=== PATIENT | male | born 1950 | race Caucasian/White ===

== ENCOUNTER 2021-11-11 22:18 | Inpatient (IN) | payer BC, MEDICAID, SELFPAY ==
[~2021-11-11] VITALS: Ht 177.8 cm; Wt 72.1 kg
--- NOTE | 2021-11-11 22:39 | NUR ---
PT TO HOLD IN AMBULANCE.
[2021-11-11 22:59] VITALS: BP 135/74
--- NOTE | 2021-11-11 22:59 | NUR ---
PT ADRIEN ALS. TAKEN TO BED 1
[2021-11-11] MEDS ORDERED: METOCLOPRAMIDE 10 MG/2 ML INJ VIAL IVP ONE (23:00)
[2021-11-11] MEDS ORDERED: KETOROLAC 15 MG/ML VIAL IVP ONE (23:00)
--- NOTE | 2021-11-11 23:00 | NUR ---
PATIENT C/O INCREASING SOB x1 DAY. COVID+ FOR 9 DAYS. 85% RA. PATIENT BIBA FROM HOME. PATIENT WAS MOIST, AND PALE. PATIENT REPORTS NOT EATING SINCE SICKNESS. +N/V. DIMINISHED LUNG SOUNDS THROUGHOUT AND PATIENT DOES HAVE A WET COUGH ON OCCASION. MEDHX- HLYD, ANXIETY, DEPRESSION NKA
[2021-11-11 23:14] LABS: BASOPHILS # (AUTO) 0.1 K/uL (0.00-0.22); BASOPHILS % (AUTO) 1.2 % (0.0-2.0); EOSINOPHILS % (AUTO) 0.1 % (0.0-4.0); HEMATOCRIT 49.4 % (36-52); HEMOGLOBIN 16.7 g/dL (12.0-18.0); LYMPHOCYTES % (AUTO) 17.8 % (20.5-51.1); MEAN CORPUSCULAR HEMOGLOBIN 30 pg (27-31); MEAN CORPUSCULAR HGB CONC 34 g/dL (33-37); MEAN CORPUSCULAR VOLUME 88.6 fL (80-94); MONOCYTES # (AUTO) 0.5 K/uL (0.8-1.0); MONOCYTES % (AUTO) 8.1 % (1.7-9.3); NEUTROPHILS % (AUTO) 72.8 % (42.2-75.2); PLATELET COUNT (AUTO) 163 K/uL (140-450); RED BLOOD CELL COUNT(AUTO) 5.58 MIL/uL (4.20-6.10); WHITE BLOOD COUNT (AUTO) 5.5 K/uL (4.8-10.8)
[2021-11-11 23:31] LABS: ANION GAP 13.3 (8-16); ASPARTATE AMINOTRANSFERASE 118 U/L (15-37); CARBON DIOXIDE 28.7 mmol/L (21-32); CHLORIDE 100 mmol/L (98-107); GLUCOSE 108 mg/dL (74-106); SODIUM SERUM 138 mmol/L (136-145); TOTAL BILIRUBIN 0.8 mg/dL (0.0-1.0); UREA NITROGEN, BLOOD 15 mg/dL (7-18)
[2021-11-12] MEDS ORDERED: AZITHROMYCIN 250 MG TAB PO ONE (00:45)
[2021-11-12] MEDS ORDERED: DEXAMETHASONE 10 MG/ML VIAL IVP ONE (00:45)
--- NOTE | 2021-11-12 01:12 | NUR ---
Mayra daughter called about patient condition. #[phone]
[2021-11-12] MEDS ORDERED: cefTRIAXone 1,000 MG VIAL ONE (01:27)
[2021-11-12] MEDS ORDERED: busPIRone 5 MG TAB PO SCH (02:20)
[2021-11-12] MEDS ORDERED: CRUSHER, PILL MC ONE (02:25)
--- NOTE | 2021-11-12 02:40 | NUR ---
patient reports feeling restless and anxious, patient moving a lot in the room and would like to go home but understands the need to stay in the hospital
--- NOTE | 2021-11-12 07:30 | NUR ---
Pt report given to BRIELLE BOWEN AND DANYA BOWEN. Transfer of care at this time.
--- NOTE | 2021-11-12 07:32 | NUR ---
RECEIVED REPORT FROM CHRISTIANA, FINANCIAL PLANNING ADVISER OF ARE AT THIS TIME.
--- NOTE | 2021-11-12 09:03 | NUR ---
Patient appears to be resting comfortably in bed. Vital Signs within normal limits. Respirations even and unlabored.
[2021-11-12] MEDS ORDERED: MORPHINE SULFATE 4 MG/ML SYR IVP PRN (10:25)
[2021-11-12] MEDS ORDERED: HYDROcodone/APAP 5/325 MG 1 TAB TAB PO PRN (10:25)
[2021-11-12] MEDS ORDERED: ACETAMINOPHEN 325 MG TAB PO PRN (10:25)
[2021-11-12] MEDS ORDERED: remdesivir COMMUNICATION ORDER 1 EA MISC MC PRN (10:30)
--- NOTE | 2021-11-12 10:49 | NUR ---
PT IS LYING IN BED. ALL NEEDS MET. VITAL SIGNS STABLE. WILL CONTINUE TO MONITOR
[2021-11-12] MEDS ORDERED: remdesivir CLINICAL MONITORING 1 EA MISC MC PRN (10:50)
--- NOTE | 2021-11-12 11:06 | NUR ---
CONSENT SIGNED FOR [facility] INFUSION. PLACED IN CHART.
[2021-11-12] MEDS ORDERED: REMDESIVIR. 200 MG in NACL 0.9% 100 ML IV SCH (12:00)
--- NOTE | 2021-11-12 12:12 | NUR ---
DC PLANNING: ORDERS RECEIVED FOR HOME O2, ORDERS FAXED TO [facility] TO ARRANGE. CM WILL FOLLOW. Addendum: 11/13/21 at 1113 by Ivett Zamora CM DC PLANNING: KB LEFT FOR SERVANDO SMITH AT [facility] ENDORSING POTENTIAL DC TO HOME TODAY, ASKED HER TO FINALIZE O2 ARRANGEMENTS FOR DELIVERY TO THE HOSPITAL. CM WILL FOLLOW. Addendum: 11/13/21 at 1559 by Ivett Zamora CM DC PLANNING: SERVANDO SPOKE WITH SERVANDO TRIPATHI AT [facility] ([phone]), O2 ORDERED THROUGH [facility] ([phone]), NO ETA YET PER BHUMI. SERVANDO WILL FOLLOW.
--- NOTE | 2021-11-12 14:37 | NUR ---
PATIENT IS LAYING IN BED, AWAKE. NO SIGNS OF DISTRESS. PATIENT DENIES PAIN. DAUGHTER BROUGHT SOFTWARE VALIDATION TECHNICIAN FOR PT, GIVEN TO PATIENT.
--- NOTE | 2021-11-12 19:19 | NUR ---
REPORT GIVEN TO BRIELLE BOWEN
--- NOTE | 2021-11-12 19:20 | NUR ---
RECEIVED REPORT FROM JESSI HAGAN. TRANSFER OF CARE AT THIS TIME.
--- NOTE | 2021-11-12 20:45 | NUR ---
PT RESTING, VISIBLE EQUAL RISE AND FALL OF CHEST, VSS, WILL CONTINUE TO MONITOR.
--- NOTE | 2021-11-12 20:59 | NUR ---
Ava paulino in [facility] - 11/12/21 at 2115 by ROSENDO PT MOVED TO ER BED 1
--- NOTE | 2021-11-12 20:59 | NUR ---
PT MOVED TO ER BED 2
--- NOTE | 2021-11-12 21:45 | NUR ---
GAVE REPORT TO JESSI MURDOCK. TRANSFER OF CARE AT THIS TIME.
--- NOTE | 2021-11-12 22:03 | NUR ---
ASSUMED CARE AT THIS TIME.
--- NOTE | 2021-11-12 22:05 | NUR ---
PT LAYING DOWN SUPINE IN BED. HOB ELEVATED SLIGHTLY FOR COMFORT. VISIBLE CHEST RISE AND FALL NOTED. NAD. WILL CONTINUE TO MONITOR.
--- NOTE | 2021-11-13 00:30 | NUR ---
PT LAYING DOWN SUPINE IN BED. VISIBLE CHEST RISE AND FALL NOTED. NAD. LIGHT TURNED OFF PER PT REQUEST. WILL CONTINUE TO MONITOR.
--- NOTE | 2021-11-13 04:26 | NUR ---
PT LAYING DOWN SUPINE IN BED. VISIBLE CHEST RISE AND FALL NOTED. NAD. WILL CONTINUE TO MONITOR.
--- NOTE | 2021-11-13 07:23 | NUR ---
REPORT GIVEN TO JESSI HANNAH. TRANSFER OF CARE
--- NOTE | 2021-11-13 07:23 | NUR ---
report given to JESSI post. transfer of care at this time.
[2021-11-13 08:05] LABS: ALBUMIN 2.6 g/dL (3.4-5.0); ASPARTATE AMINOTRANSFERASE 107 U/L (15-37); CARBON DIOXIDE 25.3 mmol/L (21-32); CHLORIDE 105 mmol/L (98-107); CREATININE 0.7 mg/dL (0.6-1.3); GLUCOSE 111 mg/dL (74-106); POTASSIUM 4.3 mmol/L (3.5-5.1); SODIUM SERUM 139 mmol/L (136-145); TOTAL BILIRUBIN 0.7 mg/dL (0.0-1.0); UREA NITROGEN, BLOOD 18 mg/dL (7-18)
[2021-11-13] MEDS ORDERED: DEXAMETHASONE 10 MG/ML VIAL IVP SCH (09:00)
[2021-11-13] MEDS ORDERED: ENOXAPARIN 40 MG/0.4 ML SYR SUBQ SCH ×2 (09:00)
[2021-11-13] MEDS ORDERED: AZITHROMYCIN 250 MG TAB PO SCH (09:00)
--- NOTE | 2021-11-13 09:11 | NUR ---
DR MELLO AT BEDSIDE TO ASSESS PT AT THIS TIME.
[2021-11-13] MEDS ORDERED: REMDESIVIR. 100 MG in NACL 0.9% 100 ML IV SCH (12:00)
--- NOTE | 2021-11-13 12:58 | NUR ---
PATIENT AWAKE LYING IN BED. NO SIGNS OF DISTRESS NOTED. WILL CONTINUE TO MONITOR.
[2021-11-13] MEDS ORDERED: DEC4 PO (15:13)
[2021-11-13] MEDS ORDERED: AZIT250T3 PO (15:17)
--- NOTE | 2021-11-13 16:00 | NUR ---
PATIENT HAS BEEN SCREENED AND CATEGORIZED MODERATE NUTRITION RISK. PATIENT WILL BE SEEN WITHIN 3-5 DAYS OF ADMISSION. [address]
[2021-11-13 17:07] VITALS: BP 115/68
--- NOTE | 2021-11-13 17:39 | NUR ---
Patient discharged with v/s stable. Written and verbal after care instructions given and explained. Picked up by daughter. Patient alert, oriented and verbalized understanding of instructions. Wheel Chair Assisted with to car. All questions addressed prior to discharge. ID band removed. Patient advised to follow up with PMD. Rx of 3 tanks of oxygen given. Patient educated on indication of medication including possible reaction and side effects. Opportunity to ask questions provided and answered.
[2021-11-13 17:40] VITALS: BP 115/68
== END 2021-11-13 17:40 | disposition home or self-care (01) | DRG 177 ==
LOC: MED 22:18 → MMU 11-12 10:26
PROVIDERS: ADMIT Student in an Organized Health Care Education/Training Program; ATTEND Student in an Organized Health Care Education/Training Program
PROC: XW033E5 Introduction of Remdesivir Anti-infective into Peripheral Vein, Percutaneous Approach, New Technology Group 5 (ICD-10-PCS; principal; 2021-11-13)
DX: U07.1 COVID-19 (principal); J12.82 Pneumonia due to coronavirus disease 2019; J96.01 Acute respiratory failure with hypoxia; J15.9 Unspecified bacterial pneumonia; F41.9 Anxiety disorder, unspecified; E78.00 Pure hypercholesterolemia, unspecified; N40.0 Benign prostatic hyperplasia without lower urinary tract symptoms; I10 Essential (primary) hypertension; E78.5 Hyperlipidemia, unspecified
CPT/HCPCS: 36415; 71045; 80053; 83880; 84484; 85025; 85379; 96365; 96375; 97163-GP; 97530; 99285; J0696; J1100; J1650; J1885; J2765; Q0092

== ENCOUNTER 2022-08-05 15:51 | Emergency (ER) | payer BC, MEDICAID ==
[~2022-08-05] VITALS: Ht 170.2 cm; Wt 68.0 kg
[~2022-08-05 15:51] MED LIST: AZIT250T3 PO; DEC4 PO
[2022-08-05 15:53] VITALS: BP 159/108
[2022-08-05] MEDS ORDERED: LIDOCAINE MPF 1% 10 MG/ML VIAL INJ ONE ×2 (16:00→17:30)
--- NOTE | 2022-08-05 16:05 | NUR ---
TO ER BED 11
[2022-08-05] MEDS ORDERED: MORPHINE SULFATE 4 MG/ML SYR ONE (16:19)
[2022-08-05] MEDS ORDERED: AMPICILLIN 1,000 MG in NACL 0.9% 50 ML IV ONE (16:20)
[2022-08-05] MEDS ORDERED: GENTAMICIN 120 MG in DEXTROSE 5% 100 ML IV ONE (16:20)
[2022-08-05] MEDS ORDERED: MORPHINE SULFATE 4 MG/ML SYR IVP ONE ×2 (16:20→16:40)
[2022-08-05] MEDS ORDERED: AMPICILLIN 1,000 MG VIAL ONE (16:24)
[2022-08-05 16:34] LABS: BASOPHILS % (AUTO) 0.4 % (0.0-2.0); EOSINOPHILS % (AUTO) 0.2 % (0.0-4.0); HEMATOCRIT 48.7 % (36-52); HEMOGLOBIN 16.4 g/dL (12.0-18.0); LYMPHOCYTES # (AUTO) 2.3 K/uL (2.0-11.5); LYMPHOCYTES % (AUTO) 23.1 % (20.5-51.1); MEAN CORPUSCULAR HEMOGLOBIN 30 pg (27-31); MEAN CORPUSCULAR HGB CONC 34 g/dL (33-37); MEAN CORPUSCULAR VOLUME 89.5 fL (80-94); MONOCYTES # (AUTO) 0.8 K/uL (0.8-1.0); MONOCYTES % (AUTO) 8.5 % (1.7-9.3); NEUTROPHILS # (AUTO) 6.8 K/uL (1.8-7.7); NEUTROPHILS % (AUTO) 67.8 % (42.2-75.2); PLATELET COUNT (AUTO) 202 K/uL (140-450); RED BLOOD CELL COUNT(AUTO) 5.44 MIL/uL (4.20-6.10); RED CELL DISTRIBUTION WIDTH 14.1 % (11.6-13.7)
[2022-08-05 17:09] LABS: ALBUMIN 3.6 g/dL (3.4-5.0); ANION GAP 17.1 (8-16); ASPARTATE AMINOTRANSFERASE 24 U/L (15-37); CARBON DIOXIDE 21.7 mmol/L (21-32); CHLORIDE 109 mmol/L (98-107); CREATININE 1.3 mg/dL (0.6-1.3); GLUCOSE 109 mg/dL (74-106); POTASSIUM 3.8 mmol/L (3.5-5.1); SODIUM SERUM 144 mmol/L (136-145); TOTAL BILIRUBIN 0.9 mg/dL (0.0-1.0); UREA NITROGEN, BLOOD 17 mg/dL (7-18)
[2022-08-05] MEDS ORDERED: PROPOFOL 200 MG/20 ML VIAL IV ONE (17:55)
--- NOTE | 2022-08-05 18:00 | NUR ---
72/M PRESENTS TO ED WITH C/O LACERATION TO LEFT HAND. STATES HE WAS USING AN ELECTRIC SAW AT WORK AND GOT HIS HAND CAUGHT IN THE SAW, LACERATION NOTED TO LEFT PALM AND PARTIAL AMPUTATIONS NOTED TO FIRST, SECOND AND THIRD DIGITS. PATIENT DENIES INJURY OR TRAUMA ELSEWHERE. DENIES DIZZINESS OR VISION CHANGES, STATING 10/10 PAIN. PATIENT IN GOWN ON BEDSIDE MANAGER WORK.
--- NOTE | 2022-08-05 19:01 | NUR ---
S/W PATIENTS DAUGHTER DOLORES AND GAVE AN UPDATE
--- NOTE | 2022-08-05 19:24 | NUR ---
Pt report given to HARMONY BOWEN, ZELALEM BOWEN. Transfer of care at this time.
[2022-08-05 19:39] VITALS: BP 121/77
--- NOTE | 2022-08-05 19:39 | NUR ---
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
--- NOTE | 2022-08-05 19:39 | NUR ---
Patient does not wish to proceed with medical care recommended by dr.dela hemphill. Patient given information related to possible complications, up to and including , which could occur as a result of leaving hospital at this time. Patient verbalizes understanding of risks involved leaving against medical advice. Patient has signed AMA form.
--- NOTE | 2022-08-06 16:14 | NUR ---
LATE ENTRY. IV GARAMYCIN DISCONTINUED 08/05/22 AT 1939.
== END 2022-08-05 19:39 | disposition left against medical advice (07) ==
LOC: MED 15:51
DX: S68.022A Partial traumatic metacarpophalangeal amputation of left thumb, initial encounter (principal); S68.121A Partial traumatic metacarpophalangeal amputation of left index finger, initial encounter; S68.123A Partial traumatic metacarpophalangeal amputation of left middle finger, initial encounter; F41.9 Anxiety disorder, unspecified; E78.00 Pure hypercholesterolemia, unspecified; X58.XXXA Exposure to other specified factors, initial encounter; Y93.89 Activity, other specified; Y92.89 Other specified places as the place of occurrence of the external cause; Y99.8 Other external cause status
CPT/HCPCS: 36415; 73130; 80053; 85025; 86886; 86900; 86901; 87040; 90471; 90715; 96365; 96367; 96375; 96376; 99285; G0500; J0290; J1580; J2001; J2270; J7060; Q0092; J2704